=== PATIENT | female | born 1970 | race African-American/Black ===

== ENCOUNTER 2024-01-16 20:38 | Emergency (ER) | payer OTHER ==
[2024-01-16 20:51] VITALS: BMI 15.7
[2024-01-16] MEDS: LACTATED RINGERS SOLUTION 1000 ML INFUS.BAG IV ONE (23:15)
[2024-01-16 23:20] LABS: BASO % 0.3 % (0-2.0); EOS % 0.8 % (0-4.5); HEMOGLOBIN 12.4 GM/dL (10.7-15.3); LYMPH % 33.2 % (8-40); MCH 33.1 pg (25.7-33.7); MCHC 33.7 g/dl (32.0-36.0); MEAN CELL VOLUME 98.3 fl (80-96); MEAN PLT VOLUME 8.7 fl (7.5-11.1); MONO % 6.1 % (3.8-10.2); NEUT % 59.6 % (42.8-82.8); PLATELET COUNT 257 10^3/uL (134-434); RBC 3.76 M/mm3 (3.60-5.2); RDW 14.2 % (11.6-15.6); WHITE BLOOD COUNT 9.5 K/mm3 (4.0-10.0)
[2024-01-16 23:37] LABS: POTASSIUM 5.4 mmol/L (3.5-5.1)
[2024-01-16 23:39] LABS: CALCIUM 8.9 mg/dL (8.5-10.1)
[2024-01-16 23:40] LABS: ALBUMIN 3.5 g/dl (3.4-5.0); BLOOD UREA NITROGEN 21.7 mg/dL (7-18)
[2024-01-16 23:43] LABS: CREATININE 0.6 mg/dL (0.55-1.3)
[2024-01-16 23:44] LABS: BILIRUBIN,TOTAL 0.6 mg/dL (0.2-1)
[2024-01-16 23:45] LABS: TOT PROT 6.5 g/dl (6.4-8.2)
[2024-01-17 00:04] VITALS: BP 128/76; PULSE 72; RESP 16; TEMP 97.8
== END 2024-01-17 02:07 | disposition home or self-care (01) ==
LOC: JER 20:38
DX: E86.0 Dehydration (principal); Z20.822 Contact with and (suspected) exposure to COVID-19
CPT/HCPCS: 0241U-QW; 36415; 80053; 85025; 99283-25

== ENCOUNTER 2024-04-09 10:11 | Emergency (ER) | payer OTHER ==
[2024-04-09 10:20] VITALS: BP 114/72; TEMP 97.8; BMI 15.7
[2024-04-09] MEDS ORDERED: ACETAMINOPHEN INJECTION 100 ML ONE (11:55)
[2024-04-09] MEDS: ACETAMINOPHEN 1000 MG/100 ML BAG IVPB ONE (12:15)
[2024-04-09] MEDS: SODIUM CHLORIDE 0.9% 500 ML INFUS.BAG IV ONE (12:15)
[2024-04-09 12:23] LABS: BASO % 0.6 % (0-2.0); EOS % 0.5 % (0-4.5); HEMATOCRIT 37.9 % (32.4-45.2); HEMOGLOBIN 12.3 GM/dL (10.7-15.3); LYMPH % 25.5 % (8-40); MCH 32.2 pg (25.7-33.7); MCHC 32.4 g/dl (32.0-36.0); MEAN CELL VOLUME 99.4 fl (80-96); MEAN PLT VOLUME 8.5 fl (7.5-11.1); MONO % 9.4 % (3.8-10.2); PLATELET COUNT 356 10^3/uL (134-434); RBC 3.81 M/mm3 (3.60-5.2); RDW 13.3 % (11.6-15.6); WHITE BLOOD COUNT 11.2 K/mm3 (4.0-10.0)
[2024-04-09] MEDS ORDERED: ONDANSETRON 4 MG/2 ML VIAL ONE (12:40)
[2024-04-09 12:41] LABS: POTASSIUM 3.7 mmol/L (3.5-5.1)
[2024-04-09 12:45] LABS: CALCIUM 9.6 mg/dL (8.5-10.1)
[2024-04-09 12:46] LABS: ALBUMIN 3.9 g/dl (3.4-5.0); BLOOD UREA NITROGEN 18.7 mg/dL (7-18)
[2024-04-09] MEDS: ONDANSETRON 4 MG/2 ML VIAL IVPUSH ONE (12:46)
[2024-04-09 12:49] LABS: CREATININE 0.9 mg/dL (0.55-1.3)
[2024-04-09 12:50] LABS: BILIRUBIN,TOTAL 0.6 mg/dL (0.2-1); TOT PROT 7.2 g/dl (6.4-8.2)
[2024-04-09 13:58] VITALS: PULSE 87; RESP 19
== END 2024-04-09 14:11 | disposition home or self-care (01) ==
LOC: JER 10:11
PROC: 3E033NZ Introduction of Analgesics, Hypnotics, Sedatives into Peripheral Vein, Percutaneous Approach (ICD-10-PCS; principal; 2024-04-09)
PROC: 3E033GC Introduction of Other Therapeutic Substance into Peripheral Vein, Percutaneous Approach (ICD-10-PCS; 2024-04-09)
DX: R51.9 Headache, unspecified (principal); R11.2 Nausea with vomiting, unspecified; R10.84 Generalized abdominal pain; R42 Dizziness and giddiness; W10.8XXA Fall (on) (from) other stairs and steps, initial encounter; Y99.0 Civilian activity done for income or pay
CPT/HCPCS: 36415; 70450-TC; 80053; 85025; 99284-25; J0131